=== PATIENT | female | born 1990 | race Caucasian/White ===

== ENCOUNTER 2018-04-29 23:57 | Outpatient (CLI) | payer SELFPAY ==
[2018-04-30 03:13] VITALS: BP 99/57
== END 2018-04-30 05:00 | disposition home or self-care (01) ==
LOC: TRG 23:57
PROVIDERS: ATTEND Obstetrics & Gynecology
DX: O47.1 False labor at or after 37 completed weeks of gestation (principal); Z3A.39 39 weeks gestation of pregnancy
CPT/HCPCS: 59025

== ENCOUNTER 2018-05-01 06:07 | Inpatient (IN) | payer SELFPAY ==
[2018-05-01] MEDS ORDERED: LACTATED RINGERS 1,000 ML ONE (06:51)
--- NOTE | 2018-05-01 07:00 | History and Physical Report ---
History of Present Illness Date of examination: 05/01/18 Date of admission: 05/01/18 06:43 Chief complaint: Active labour History of present illness: 28-year-old at 39+2 weeks presents in active labor, she is a [facility]/ [employer] patient. course has been unremarkable, she is GBS negative per patient. In triage, she is 5 cm dilated Past History Past Medical History: no pertinent history Past Surgical History: no surgical history [employer] History: chlamydia. denies: gonorrhea, hepatitis B, hepatitis C, herpes, HIV, syphilis, trichomonas Social history: full code. denies: smoking - Obstetrical History Expected Date of Delivery: 05/06/18 Actual Gestation: 39 Week(s) 2 Day(s) : 2 Para: 1 Medications and Allergies Allergies Allergy/AdvReac Type Severity Reaction Status Date / Time No Known Allergies Allergy Verified 12/08/15 00:36 Home Medications Medication Instructions Recorded Confirmed Last Taken Type No Known Home Medications [No 12/09/15 12/09/15 Unknown History Reported Home Medications] Review of Systems Constitutional: no fever, no chills, no fatigue, no weakness Cardiovascular: no chest pain, no lightheadedness, no shortness of breath, no dyspnea on exertion, no paroxysmal nocturnal dyspnea Respiratory: no cough, no cough with sputum, no shortness of breath, no dyspnea on exertion Gastrointestinal: no abdominal pain, no nausea, no vomiting, no heartburn, no indigestion Genitourinary: no vaginal bleeding, no vaginal discharge - Vital Signs Vital signs: Vital Signs Pulse BP 67 105/66 05/01/18 06:24 05/01/18 06:24 Temp Pulse Resp BP Pulse Ox 97.9 F 67 18 105/66 05/01/18 06:27 05/01/18 06:27 05/01/18 06:27 05/01/18 06:27 - Physical Exam Lungs: Positive: Clear to auscultation, Normal air movement Abdomen: Positive: normal appearance, soft. Negative: distention, tenderness, guarding, rigidity Genitourinary (Female): Positive: normal external genitalia Vulva: both: normal Uterus: Positive: enlarged (EFW ~ 3600). Negative: tender Adnexa: both: normal Extremities: Positive: normal - Obstetrical FHR: category 1 Cervical Dilatation: 5 (Per RN) Results All other labs normal. Assessment and Plan A: 28-year-old at 39+2 weeks in active labor -Cat 1 tracing P: -Admit -Routine labs -Expectant mgt -Anticipate - Patient Problems (1) 39 weeks gestation of Current Visit: Yes Status: Acute (2) Active labor at term Current Visit: Yes Status: Acute
[2018-05-01] MEDS ORDERED: BRETHINE SUB-Q PRN (07:01)
[2018-05-01] MEDS ORDERED: BRETHINE IVP PRN (07:01)
[2018-05-01] MEDS ORDERED: ePHEDrine SULFATE IV PRN (07:01)
[2018-05-01] MEDS ORDERED: SUBLIMAZE IV PRN (07:01)
[2018-05-01] MEDS ORDERED: PHENERGAN PO PRN ×2 (07:01→10:53)
[2018-05-01] MEDS ORDERED: NARCAN 0.4 MG/1 ML IV PRN (07:01)
[2018-05-01] MEDS ORDERED: XYLOCAINE 2% INFILTRATI ONE (07:01)
[2018-05-01] MEDS ORDERED: ZOFRAN IV PRN ×2 (07:01→10:53)
[2018-05-01] MEDS ORDERED: LACTATED RINGERS 1,000 ML IV SCH (08:00)
[2018-05-01] MEDS ORDERED: PITOCin/NS 30 UNIT/500ML 30 UNITS/500 ML BAG IV SCH (08:00)
[2018-05-01 08:54] LABS: Hematocrit 36.6 % (30.3-42.9); Hemoglobin 12.2 gm/dl (10.1-14.3); Mean Corpuscular HGB Conc 33 % (30-34); Mean Corpuscular Hemoglobin 30 pg (28-32); Mean Corpuscular Volume 91 fl (79-97); Platelet Count 225 K/mm3 (140-440); Red Blood Count 4.02 M/mm3 (3.65-5.03); Red Cell Distribution Width 14.7 % (13.2-15.2)
[2018-05-01] MEDS: PITOCin/NS 20 UNIT/1000ML DRIP 20 UNITS/1,000 ML BAG IV SCH ×2 (09:51→11:45)
[2018-05-01] MEDS ORDERED: LANSINOH TP PRN (10:53)
[2018-05-01] MEDS ORDERED: MILK OF MAGNESIA PO PRN (10:53)
[2018-05-01] MEDS ORDERED: DULCOLAX PR PRN (10:53)
[2018-05-01] MEDS ORDERED: BENADRYL PO PRN (10:53)
[2018-05-01] MEDS ORDERED: TYLENOL PO PRN (10:53)
[2018-05-01] MEDS ORDERED: TUCKS PAD TP PRN (10:53)
[2018-05-01] MEDS ORDERED: PHENERGAN PR PRN (10:53)
[2018-05-01] MEDS ORDERED: SODIUM CHLORIDE FLUSH SYRINGE 10 ML IV NR (11:00)
[2018-05-01] MEDS ORDERED: NORCO 5/325 PO PRN (11:09)
--- NOTE | 2018-05-01 11:22 | Procedure Note ---
OB Delivery Note - Vaginal Delivery presentation: vertex Delivery position: OA Intrapartum events: shoulder dystocia Delivery induction: none Delivery monitor: external FHT, external uterine Route of delivery: Delivery placenta: spontaneous Delivery cord: other (short cord) Episiotomy: none Delivery laceration: none Anesthesia: none Delivery comments: of liveborn female over intact perineum weighing 7 lb. 8 oz. with apgars of 8 and 9. OA position at delivery. Right anterior shoulder dystocia, resolved with delivery of posterior arm. After posterior arm delivered, baby's body delivered easily. Short 3 vessel cord; cord double clamped and cut. Spontaneous cry and respirations. Cord blood obtained. Spontaneous delivery of intact placenta and membranes. Pitocin to IV fluids after delivery of placenta. EBL 250 ml. Vaginal sweep negative. No lacerations noted. Sponge count correct. Mother and baby stable in birthing room.
[2018-05-01] MEDS: MOTRIN PO SCH ×3 (11:43→23:59)
[2018-05-01] MEDS ORDERED: MINERAL OIL PO PRN (22:00)
[2018-05-01] MEDS: COLACE PO SCH (22:04)
[2018-05-01 22:19] LABS: Hematocrit 34.3 % (30.3-42.9); Hemoglobin 11.5 gm/dl (10.1-14.3)
[2018-05-02] MEDS: MOTRIN PO SCH ×2 (05:52→12:54)
[2018-05-02] MEDS: COLACE PO SCH (10:04)
--- NOTE | 2018-05-02 11:29 | Progress Note ---
Assessment and Plan A: day 1 S/P spontaneous vaginal delivery. P: Discharge patient home today when baby is able to go. Advised pt. to continue her vitamins and iron supplements. Advised pt. to avoid IC, avoid heavy lifting, and avoid strenuous exercise. Advised pt. to follow up at clinic in 6 weeks for exam. Discussed with patient discharge instructions and warning signs. Patient voiced understanding of all instructions. Subjective - Subjective Date of service: 05/02/18 Principal diagnosis: day 1 S/P Interval history: day 1 S/P liveborn female . Doing well. Pt. desires discharge this afternoon. . Ambulating well; voiding without difficulty. Tolerating a regular diet without nausea or vomiting. Declines contraception. Patient denies headache, chest pain, cough, shortness of breath, abdominal pain , leg pain, heavy bleeding, or any symptoms of depression. Patient reports: appetite normal, voiding normally, pain well controlled, ambulating normally [place]: doing well Objective - Vital Signs Latest vital signs: Vital Signs Temp Pulse Resp BP BP Pulse Ox 05/02/18 07:31 98.1 F 74 16 92/52 99 05/02/18 05:52 18 05/02/18 00:00 98.0 F 73 18 112/68 05/01/18 23:59 18 05/01/18 20:15 98.0 F 83 18 107/64 05/01/18 16:30 98.7 F 78 16 114/68 05/01/18 12:00 98.2 F 91 H 20 104/62 Intake and Output 05/01/18 05/02/18 05/02/18 23:59 07:59 15:59 Intake Total 120 240 Output Total 600 Balance -480 240 Intake: Oral 120 240 Output: Urine 600 Void 600 Other: Total, Intake Amount 120 120 Total, Output Amount 600 # Voids Void 1 - Exam Cardiovascular: Present: Regular rate, Normal S1, Normal S2 Lungs: Present: Clear to auscultation Abdomen: Present: normal appearance, soft. Absent: distention, tenderness, guarding, rigidity Uterus: Present: normal, firm, fundal height below umbilicus. Absent: bogginess , tenderness Extremities: Present: normal. Absent: tenderness, edema
--- NOTE | 2018-05-02 11:36 | Discharge Summary ---
Providers - Providers Date of Admission: 05/01/18 06:43 Attending physician: TAMANNA GR MD None Primary care physician: TAMANNA GR MD Hospitalization Reason for admission: active labor Delivery: Episiotomy: none Laceration: none Other procedures: none complications: none Discharge diagnosis: IUP at term delivered [place] baby: female Pertinent studies: Labs Hospital course: Normal hospital course Condition at discharge: Good Disposition: DC-01 TO HOME OR SELFCARE - Discharge Diagnoses (1) Term delivered Status: Acute Plan - Provider Discharge Summary Activity: routine, no sex for 6 weeks, no heavy lifting 4 weeks, no strenuous exercise Diet: routine Instructions: routine Additional instructions: Call your doctor immediately for: * Fever > 100.5 * Heavy vaginal bleeding ( >1 pad per hour) * Severe persistent headache * Shortness of breath * Reddened, hot, painful area to leg or breast - Follow up plan Follow up: TAMANNA GR MD [Primary Care Provider] - 6 Weeks Forms: [facility] Discharge Summary
[2018-05-02 17:00] VITALS: BP 94/43
== END 2018-05-02 16:10 | disposition home or self-care (01) | DRG 775 ==
LOC: TRG 06:07 → LD 06:43 → OB 12:09
PROVIDERS: ADMIT Obstetrics & Gynecology; ATTEND Obstetrics & Gynecology
PROC: 10E0XZZ Delivery of Products of Conception, External Approach (ICD-10-PCS; principal; 2018-05-01)
DX: O66.0 Obstructed labor due to shoulder dystocia (principal); O69.3XX0 Labor and delivery complicated by short cord, not applicable or unspecified; Z3A.39 39 weeks gestation of pregnancy; Z37.0 Single live birth
CPT/HCPCS: 36415; 59025; 85014; 85018; 85027; 86592; 86850; 86900; 86901; J2590; J3010; J7120